=== PATIENT | male | born 1960 | race Caucasian/White ===

== ENCOUNTER → 2019-03-27 | Outpatient (CLI) | payer BC ==
--- NOTE | 2019-03-27 16:03 | PCVCIMAG ---
APPROVED REPORT Study performed: 03/27/2019 15:27:21 Exam: Stress Echocardiogram Indication: Hyperlipidemia, Abnormal calcium score Patient Location: Echo lab Stress Nurse: Radha Massey RN Status: routine Ht: 5 ft 7 in HR: 57 bpm BP: 130/84 mmHg Rhythm: NSR Medical History Medical History: Hyperlipidemia, Elevated calcium score Procedure The patient underwent an Exercise Stress Test using the Mauro Protocol. Blood pressure, heart rate, and EKG were monitored. An Echocardiogram was performed by application technician in four stages in quad fashion. At peak stress, four selected images were obtained and placed side by side with resting images for comparison. Stress Test Details Stress Test: Exercise stress testing was performed using a Mauro protocol. HR Resting HR: 57 bpmMax Heart Rate (APMHR): 163 bpm Max HR Achieved: 148 bpmTarget HR (85% APMHR): 138 bpm % of APMHR: 90 Recovery HR: 70 bpm HR response to stress: Normal HR response to stress BP Resting BP: 130/84 mmHg Max BP: 160/84 mmHg Recovery BP: 138/74 mmHg BP response to stress: Normal blood pressure response to stress. ECG Resting ECG: Sinus Rhythm Stress ECG: Sinus Rhythm Recovery ECG: Sinus Rhythm Clinical Reason for Termination: Maximal effort Exercise duration: 12 min 05 sec Highest Stage Achieved: Stage 4: 4.2 mph at 16% grade. Exercise capacity: 13.70 METs Overall Exercise Capacity for Age: Good Pre-Stress Echo The resting Echocardiogram showed normal left ventricular contractility with an estimated Ejection Fraction of about 55-60%. Normal wall motion in all segments on baseline images. Post-Stress Echo The stress Echocardiogram showed normal left ventricular contractility with an estimated Ejection Fraction of about 60-65%. Normal augmentation of wall motion in all segments on post stress images. Clinical No clinical or ECG evidence for ischemia. Conclusion Clinical Response: Non-ischemic Exercise Capacity: Average Stress ECG Response: Non-ischemic Stress Echo Images: Non-ischemic The left ventricle is normal in size and wall thickness in both the rest and stress images. Other Information Study Quality: Good <Conclusion> The left ventricle is normal in size and wall thickness in both the rest and stress images.
--- NOTE | 2019-03-27 16:30 | PCVCIMAG ---
APPROVED REPORT Laterality: Bilateral Indications Bruit Doppler Spectral Velocity Analysis PSV / EDVPSV / EDV ECA (R) 109 / 8 cm/sECA (L) 103 / 19 cm/s dICA (R) 58 / 22 cm/sdICA (L) 80 / 28 cm/s Divine (R) 69 / 26 cm/smICA (L) 59 / 22 cm/s pICA (R) 62 / 18 cm/spICA (L) 74 / 19 cm/s Bulb (R) 62 / 16 cm/sBulb (L) 66 / 20 cm/s dCCA (R) 89 / 19 cm/sdCCA (L) 93 / 24 cm/s mCCA (R) 79 / 21 cm/smCCA (L) 96 / 26 cm/s Vert (R) 45 / 14 cm/sVert (L) 53 / 20 cm/s ICA/CCA 0.78ICA/CCA 0.86 Basic Measurements Blood Pressure: Pulses: Right Left RightLeft Brachial(Sitting) 120/38llZr618/80mmHgTemporal Real Time B-Mode Imaging Vert. (R)AntegradeVert. (L)Antegrade Findings The right carotid bulb has minimal plaque. The right proximal internal carotid artery shows no significant stenosis. The right common carotid artery shows no significant stenosis. The right external carotid artery shows no significant stenosis. The left carotid bulb has minimal plaque. The left proximal internal carotid artery shows no significant stenosis. The left common carotid artery shows no significant stenosis. The left external carotid artery shows no significant stenosis. Conclusion 1. Minimal bilateral plaquing without significant stenosis. 2. Antegrade vertebral flow.
== END | disposition home or self-care (01) ==
LOC: PCVCIMAG 13:49
PROVIDERS: ATTEND Internal Medicine Cardiovascular Disease
DX: I65.23 Occlusion and stenosis of bilateral carotid arteries (principal); R93.1 Abnormal findings on diagnostic imaging of heart and coronary circulation; E78.5 Hyperlipidemia, unspecified
CPT/HCPCS: 93325; 93351; 93880